=== PATIENT | female | born 1985 | race Hispanic/Latino ===

== ENCOUNTER 2023-10-30 21:16 | Emergency (ER) | payer OTHER ==
[~2023-10-30] VITALS: Ht 157.5 cm; Wt 69.1 kg
[~2023-10-30 21:16] MED LIST: CEPHALEXIN500 MG PO; FEROSUL325 MG PO; KETOROLAC TROME10 MG PO; birth control
[2023-10-30 21:20] VITALS: PULSE 117; RESP 24; TEMP 98.8
[2023-10-30] MEDS ORDERED: TETANUS/DIPHTHERIA TOX ADULT 0.5 ML SYR ONE (22:22)
[2023-10-30] MEDS: IBUPROFEN 600 MG TAB PO STA (22:23)
[2023-10-30] MEDS: CEFTRIAXONE 1 GM VIAL IM ONE (22:23)
[2023-10-30] MEDS: TETANUS/DIPHTHERIA TOX ADULT 0.5 ML SYR IM ONE (22:24)
[2023-10-30] MEDS ORDERED: CEPHALEXIN500 MG PO (23:05)
[2023-10-31 01:10] VITALS: BP 124/61; PULSE 119; RESP 18; TEMP 97.3; O2SAT 96
== END 2023-10-31 00:05 | disposition home or self-care (01) ==
LOC: FSED 21:22
DX: M79.645 Pain in left finger(s) (principal); L03.012 Cellulitis of left finger; D64.9 Anemia, unspecified; F31.9 Bipolar disorder, unspecified; F43.10 Post-traumatic stress disorder, unspecified; Z33.1 Pregnant state, incidental
CPT/HCPCS: 73140; 90471; 90714; 99283; J0696